=== PATIENT | female | born 1975 | race Caucasian/White ===

== ENCOUNTER 2019-01-21 17:55 | Emergency (ER) | payer SELFPAY | END 2019-01-21 20:09 | disposition short-term general hospital (02) | LOC: MADERS 17:55 | DX: O99.89 Other specified diseases and conditions complicating pregnancy, childbirth and the puerperium (principal); R10.30 Lower abdominal pain, unspecified; R10.817 Generalized abdominal tenderness | CPT/HCPCS: 36415; 84702; 99284 ==